=== PATIENT | male | born 1955 ===

== ENCOUNTER 2017-11-15 06:52 | Day surgery (SDC) | payer BC ==
[2017-11-15 07:37] VITALS: O2SAT 100
[2017-11-15] MEDS ORDERED: Lactated Ringer's 1,000 ML IV ONE (08:30)
[2017-11-15] MEDS ORDERED: Lactated Ringer's 1,000 ML IV SCH (08:30)
[2017-11-15] MEDS ORDERED: Propofol 10 mg/ml Inj (20 ML) ONE (08:33)
[2017-11-15] MEDS ORDERED: Lidocaine Hydrochloride 5 ML INJ ONE (08:33)
--- NOTE | 2017-11-15 08:35 | CP.SDSHP ---
Same Day Surgery H & P - History Proposed Procedure: COLONSCOPY Pre-Op Diagnosis: SEE NOTES - Previous Medical/Surgical History Cardiac: Hypertension Endocrine/Metabolic: Diabetes, Other Misc: Other Pain: 4.Moderate Pain Previous Surgical History: COLON POLYPS REMOVED - Allergies Allergies: Allergies No Known Allergies Allergy (Verified 11/15/17 07:25) - Physical Exam General Appearance: N Vital Signs: Vital Signs 11/15/17 07:29 Temperature 97.6 F Pulse Rate 80 Respiratory 20 Rate Blood Pressure 116/64 O2 Sat by Pulse 100 Oximetry Mental Status: Alert & Oriented x3 Neuro: WNL Heart: Other Lungs: WNL GI: Other - {Optional Preform as Required} Breast: WNL Abdomen: Other Rectal: Other Integument: WNL : WNL Ortho: WNL ENT: WNL - Impression Pt. Evaluated Today:Candidate for Anesthesia & Procedure: Yes - Date & Time Time: 08:35 Short Stay Discharge - Short Stay Discharge Admitting Diagnosis/Reason for Visit: HISTORY OF COLON POLYP Disposition: HOME/ ROUTINE
[2017-11-15] MEDS ORDERED: Belladonna-Phenobarbital PO STA (08:51)
[2017-11-15 09:07] VITALS: TEMP 97.3
[2017-11-15 09:58] VITALS: BP 100/68; PULSE 64; RESP 14
== END 2017-11-15 09:55 | disposition home or self-care (01) ==
LOC: C.ENDO 06:52
PROVIDERS: ATTEND Specialist
DX: K58.9 Irritable bowel syndrome, unspecified (principal); Z86.010 Personal history of colon polyps; Z79.82 Long term (current) use of aspirin; Z79.899 Other long term (current) drug therapy; Z79.84 Long term (current) use of oral hypoglycemic drugs; E11.9 Type 2 diabetes mellitus without complications; E78.5 Hyperlipidemia, unspecified; I10 Essential (primary) hypertension; Z87.891 Personal history of nicotine dependence; K64.4 Residual hemorrhoidal skin tags; K64.8 Other hemorrhoids
CPT/HCPCS: 45380; 82948; 88305; J2704; J7120